=== PATIENT | male | born 1985 | race Caucasian/White ===

== ENCOUNTER 2019-06-09 07:02 | Emergency (ER) | payer SELFPAY ==
[~2019-06-09] VITALS: Ht 172.7 cm; Wt 61.2 kg
[2019-06-09 07:08] VITALS: BP 130/74
[2019-06-09 07:54] VITALS: BP 130/74
== END 2019-06-09 07:53 | disposition home or self-care (01) ==
LOC: MED 07:02
DX: J30.89 Other allergic rhinitis (principal); F12.10 Cannabis abuse, uncomplicated
CPT/HCPCS: 99283